=== PATIENT | female | born 1995 | race African-American/Black ===

== ENCOUNTER 2021-05-16 19:20 | Emergency (ER) | payer OTHER, SELFPAY ==
[2021-05-16 19:28] VITALS: BP 118/68; PULSE 84; RESP 14; TEMP 36.6; O2SAT 99
[2021-05-16] MEDS: ONDANSETRON 4 MG ODT SL (19:37)
[2021-05-16 21:30] VITALS: BP 123/57; PULSE 68; RESP 15; O2SAT 99
[2021-05-16 21:54] LABS: RBC Urine None Seen (0-5/HPF); Squamous Epithelial Cell Urine >30 /HPF (0-5/HPF); WBC Urine 1-5/HPF (0-5/HPF)
[2021-05-16 21:55] LABS: Bacteria Urine Many (>30); Culture Indicated Urine Cult Not Indicated; Mucus Urine 2+ (Negative)
[2021-05-16] MEDS: SODIUM CHLORIDE 0.9% 1,000 ML 1000 ML IV (22:03)
[2021-05-16 22:21] LABS: Alanine Aminotransferase 23 IU/L (<35); Albumin 4.6 g/dL (3.5-5.0); Albumin Globulin Ratio 1.2 (1.0-2.8); Alkaline Phosphatase 69 U/L (38-126); Aspartate Aminotransferase 28 IU/L (14-36); BUN Creatinine Ratio 18.9 (6-22); Bilirubin Total 0.7 mg/dL (0.2-1.3); Blood Urea Nitrogen 10 mg/dL (7-17); Calcium 9.7 mg/dL (8.4-10.2); Carbon Dioxide 23 mmol/L (22-32); Chloride 104 mmol/L (98-107); Estimated Glomerular Filt Rate > 60.0 mL/min (>60); Globulin 3.7 g/dL (1.7-4.1); Glucose 89 mg/dL (70-100); HEMOLYSIS 19 (0-50); Potassium 4.1 mmol/L (3.4-5.1); Sodium 136 mmol/L (137-145); Total Protein 8.3 g/dL (6.3-8.2)
[2021-05-16 22:24] LABS: Add Manual Diff / Slide Review NO; Basophils Absolute Auto 100 /uL (0-100); Basophils Percent Auto 0.7 % (0-2); Eosinophils Absolute Auto 0 /uL (0-450); Eosinophils Percent Auto 0.1 % (2-4); Hematocrit 33.3 % (36-46); Hemoglobin 11.2 g/dL (12.0-16.0); Lymphocytes Absolute Auto 3300 /uL (1100-4500); Lymphocytes Percent Auto 28.2 % (25-40); Mean Corpuscular HGB Conc 33.7 % (30-36); Mean Corpuscular Hemoglobin 27.3 PG (26-34); Mean Corpuscular Volume 81.1 fL (80-100); Monocytes Absolute Auto 800 /uL (0-900); Neutrophils Absolute Auto 7600 /uL (1500-7000); Platelet Count 385 X10^3/uL (150-400); Red Blood Cell Count 4.11 X10^6/uL (4.0-5.2); Red Cell Distribution Width 13.9 % (11.6-14.8); White Blood Cell Count 11.9 X10^3/uL (4.5-11.0)
--- NOTE | 2021-05-16 23:21 | ED_ITS ---
HPI - Nausea/Vomiting/Diarrhea General Chief complaint: Nausea/Vomiting/Diarrhea Stated complaint: not keeping food down Time Seen by Provider: 05/16/21 23:19 Source: patient Mode of arrival: Ambulatory History of Present Illness HPI Narrative: Patient is a 25-year-old female currently 6 weeks presenting today with nausea and vomiting. She says she has been nauseous and throwing up the past few days. She was seen and evaluated at [facility] on 05/13/2021 that time she had an ultrasound which confirmed IUP 6 weeks and 2 days along with blood work IV fluids and medication. She thought she was signing discharge pap erwork a some a told her she was discharged however it was Against Medical Advice paperwork. She has an Ob she appointment with her PCP in 2 days. She has Zofran at but only 1 tablet and took it earlier without any relief. She has no abdominal pain no vaginal bleeding. She is unable to keep anything down. She has tried all various types of marci she is on B6 Related Data Previous Rx's Medication Instructions Recorded ondansetron 4 mg disintegrating 4 mg PO Q8H PRN #10 tab 05/16/21 tablet Allergies Allergy/AdvReac Type Severity Reaction Status Date / Time No Known Drug Allergies Allergy Verified 05/16/21 19:32 Review of Systems Review of Systems Narrative: GENERAL: Denies chills, fatigue, malaise, fever, sweats, travel HEENT: Denies sinus pain, ear pain, sore throat, difficulty swallowing, neck pain RESPIRATORY: Denies dyspnea, cough, wheezing, hemoptysis, sputum. CARDIOVASCULAR: Denies chest pain, palpitations, orthopnea, edema GASTROINTESTINAL: See HPI : Denies dysuria, frequency, incontinence, hematuria, urinary retention, flank pain. MUSCULOSKELETAL: Denies weakness, joint pain, or bony pain SKIN: No rash, no erythema, no pruritus NEUROLOGIC: Denies weakness, dizziness, headache, numbness, change in speech, confusion PSYCHIATRIC: No concerning psychosocial issues. 12 point review of systems is negative except for those stated above and HPI Patient History Social History Smoking Status: Never smoker Smoking Status: Never smoker alcohol intake frequency: 0-2 drinks per day Substance Use Type: does not use Exam Initial Vital Signs Initial Vital Signs: Vital Signs Temperature 97.8 F 01/29/22 19:28 Pulse Rate 84 05/16/21 19:28 Respiratory Rate 14 05/16/21 19:28 Blood Pressure 118/68 05/16/21 19:28 Pulse Oximetry 99 05/16/21 19:28 GENERAL: Alert well-appearing 25-year-old femaleand in no acute distress. HEENT: Head atraumatic,EOMI, pupils reactive, face symmetric, moist mucous me mbranes CARDIOVASCULAR: Regular rate and rhythm without murmurs, rubs or gallops. RESPIRATORY: Breath sounds equal bilaterally, no wheezes rales or rhonchi. ABDOMEN: Soft, nontender. Normoactive bowel sounds all 4 quadrants. No guarding or rebound. : No CVA tenderness EXTREMITIES: Normal range of motion, no clubbing or edema. Neurovascularly intact NEUROLOGICAL: Alert and oriented x4.Normal gait and speech. SKIN: Warm, dry, no laceration, no petechiae, no rashes or lesions. Course Orders Ordered: ED Orders 05/16/21 21:40 Urine Microscopic Stat 05/16/21 22:05 CBC Auto Diff [Complete Blood Count AUTO DIFF] Stat CMP [Comprehensive Metabolic Panel] Stat Discontinued Medications Sodium Chloride (Normal Saline 0.9%) 1,000 mls @ 1,000 mls/hr IV BOLUS ONE Stop: 05/16/21 22:46 Last Infusion: 05/17/21 00:01 Dose: 0 mls/hr Documented by: Admin: 05/16/21 22:03 Dose: 1,000 mls/hr Documented by: ALXEUS Ondansetron HCl (Ondansetron 4 Mg Odt) 4 mg SL NOW ONE Stop: 05/16/21 19:35 Last Admin: 05/16/21 19:37 Dose: 4 mg Documented by: MICHELLE Vital Signs Vital signs: Vital Signs - 8 hr 05/16/21 19:28 05/16/21 21:30 05/17/21 00:02 Temperature 97.8 F Pulse Rate 84 68 66 Respiratory Rate 14 15 14 Blood Pressure 118/68 123/57 L 142/68 H Pulse Oximetry 99 99 98 MDM - Nausea/Vomiting/Diarrhea Lab Data Result diagrams: 05/16/21 22:05 05/16/21 22:05 Labs: Lab Results 05/16/21 05/16/21 05/16/21 Range/Units 21:40 22:05 22:05 WBC 11.9 H (4.5-11.0) X10^3/uL RBC 4.11 (4.0-5.2) X10^6/uL Hgb 11.2 L (12.0-16.0) g/dL Hct 33.3 L (36-46) % MCV 81.1 (80-100) fL MCH 27.3 (26-34) PG MCHC 33.7 (30-36) % RDW 13.9 (11.6-14.8) % Plt Count 385 (150-400) X10^3/uL Neut % (Auto) 64.0 (50-75) % Lymph % (Auto) 28.2 (25-40) % [place] % (Auto) 7.0 (3-14) % Eos % (Auto) 0.1 L (2-4) % Baso % (Auto) 0.7 (0-2) % Neut # (Auto) 7600 H (0047-3570) /uL Lymph # (Auto) 3300 (2744-9704) /uL [place] # (Auto) 800 (0-900) /uL Eos # (Auto) 0 (0-450) /uL Baso # (Auto) 100 (0-100) /uL Sodium 136 L (137-145) mmol/L Potassium 4.1 (3.4-5.1) mmol/L Chloride 104 (98-107) mmol/L Carbon Dioxide 23 (22-32) mmol/L BUN 10 (7-17) mg/dL Creatinine 0.53 (0.52-1.04) mg/dL Estimated GFR > 60.0 (>60) mL/min BUN/Creatinine Ratio 18.9 (6-22) Glucose 89 (70-100) mg/dL Calcium 9.7 (8.4-10.2) mg/dL Total Bilirubin 0.7 (0.2-1.3) mg/dL AST 28 (14-36) IU/L ALT 23 (<35) IU/L Alkaline Phosphatase 69 (38-126) U/L Total Protein 8.3 H (6.3-8.2) g/dL Albumin 4.6 (3.5-5.0) g/dL Globulin 3.7 (1.7-4.1) g/dL Albumin/Globulin Ratio 1.2 (1.0-2.8) Urine RBC None seen (0-5/HPF) Urine WBC 1-5/hpf (0-5/HPF) Ur Squamous Epith Cells >30 /hpf H (0-5/HPF) Urine Bacteria Many (>30) H (None) Urine Mucus 2+ H (Negative) Ur Culture Indicated? Cult not indicated Urine Dip Bedside Urine Glucose Negative Bedside Urine Bilirubin - Negative Bedside Urine Ketone +++ 80 Urine Specific [place] 1.030 Bedside Urine Occult Blood - Negative Bedside Urine pH 6.0 Bedside Urine Protein + 30 Bedside Urine Urobilinogen - Negative Bedside Urine Nitrite - Negative Bedside Urine Leukocytes - Negative Esterase MDM Narrative Medical decision making narrative: At time of evaluation patient already given medication and fluids she overall appears well the much better. She is hungry no longer vomiting. There is no sign of infection. she has tried multiple homeremedies and things at home to help nausea. She has an appointment with her PCP in 2 days. No need to repeat ultrasound from 3 days ago she is not having significant abdominal pain or vag inal bleeding. Discharge Plan Departure Patient Disposition: Home Clinical Impression: Vomiting during Instructions: Hyperemesis Gravidarum Activity Restrictions/Additional Instructions: *You have been diagnosed with vomiting with *What to do: At this time increase fluids as tolerated. Recommend water, Gatorade, mentor peppermint those may help some nausea. Jell-O applesauce and anything else. *Continue to take medications as directed Continue B6 daily Zofran 4 mg every 8 hours if needed for severe nausea or vomiting. *Follow up with your primary care provider in 2-3 days or call [phone] *Return to ER if you should have persistent vomiting, increased abdominal pain, vaginal bleeding or any new, worsening or concerning symptoms Prescriptions: New ondansetron 4 mg tablet,disintegrating 4 mg PO Q8H PRN (Reason: nausea and vomiting) Qty: 10 0RF Referrals: [employer] [facility] [Provider Group]
[2021-05-17 00:02] VITALS: BP 142/68; PULSE 66; RESP 14; O2SAT 98
== END 2021-05-17 00:07 | disposition home or self-care (01) ==
PROVIDERS: Emergency Provider Emergency Medicine
DX: O21.9 Vomiting of pregnancy, unspecified (principal); Z3A.01 Less than 8 weeks gestation of pregnancy
CPT/HCPCS: 36415; 80053; 81003; 81015; 85025; 96360; 96361; 99284

== ENCOUNTER → 2021-06-11 14:17 | Outpatient (CLI) | payer OTHER, SELFPAY ==
--- NOTE | 2021-06-11 14:17 | DI.US.S_ITS ---
PROCEDURE: US OB <= 14 WEEKS FETUS INDICATIONS: VIABILITY AND DATES OUTSIDE/PRIOR DATING DATA: Last menstrual period (LMP): 03/24/2021. LMP-based estimated date of delivery (MARY): 12/29/2021. First dating scan (date and location): 06/11/2021. Estimated date of delivery (MARY) from first dating scan: 01/01/2022. TECHNIQUE: Real-time scanning was performed of the fetus and maternal pelvic organs, with image documentation. Endovaginal scanning was also performed to better visualize the fetus and maternal ovaries. COMPARISON: None. FINDINGS: Embryo: Single live intrauterine is identified with crown-rump length measuring 4 cm corresponding to 10 weeks 6 days. Heart rate: 168 beats per minute. Maternal organs: Ovaries demonstrate a likely left corpus luteal cyst.. IMPRESSION: Single live intrauterine with ultrasound gestational age of 10 weeks 6 days. Recommend followup imaging at 20-22 weeks for dates and anatomy. We strive to produce accurate, complete, and clear reports of imaging services. To assist us in improving patient care, this report was composed using standard report templates and voice recognition software. Therefore, it may contain abnormal punctuation, insertions and/or omissions. Occasional wrong-word or sound-alike substitutions may occur. Though we review the report and make efforts to correct it, we do recommend that the report be read carefully in proper context to recognize any text inaccuracies. Dictated by: Julia Johnson M.D. on 06/11/2021 at 16:33 Approved by: Julia Johnson M.D. on 06/11/2021 at 16:34
[2021-06-11 15:45] LABS: Add Manual Diff / Slide Review NO; Basophils Absolute Auto 0 /uL (0-100); Basophils Percent Auto 0.3 % (0-2); Eosinophils Absolute Auto 100 /uL (0-450); Eosinophils Percent Auto 0.5 % (2-4); Hematocrit 32.1 % (36-46); Hemoglobin 10.8 g/dL (12.0-16.0); Lymphocytes Absolute Auto 3000 /uL (1100-4500); Lymphocytes Percent Auto 26.1 % (25-40); Mean Corpuscular HGB Conc 33.5 % (30-36); Mean Corpuscular Hemoglobin 27.5 PG (26-34); Monocytes Absolute Auto 600 /uL (0-900); Monocytes Percent Auto 5.1 % (3-14); Neutrophils Absolute Auto 7700 /uL (1500-7000); Platelet Count 345 X10^3/uL (150-400); Red Blood Cell Count 3.92 X10^6/uL (4.0-5.2); Red Cell Distribution Width 13.9 % (11.6-14.8); White Blood Cell Count 11.3 X10^3/uL (4.5-11.0)
[2021-06-11 16:49] LABS: Hepatitis B Surface Antigen NEGATIVE s/c (NEGATIVE); Rubella Antibody IgG 42.3 IU/mL (>15)
[2021-06-11 16:59] LABS: HIV 1 & 2 Ab/Ag 4th Gen Combo NEGATIVE (NEGATIVE); Hep C Virus Ab w/Reflex Quant NEGATIVE s/c (NEGATIVE)
[2021-06-12 04:36] LABS: RPR Screen Non Reactive (Non Reactive); Varicella IgG Antibody 421 index (Immune >165)
== END ==
PROVIDERS: Referring Provider Obstetrics & Gynecology; Visit Provider Obstetrics & Gynecology
DX: Z34.81 Encounter for supervision of other normal pregnancy, first trimester (principal); Z3A.10 10 weeks gestation of pregnancy
CPT/HCPCS: 36415; 76801; 76817; 80055; 86787; 86803; 86850; 86900; 86901; 87389

== ENCOUNTER → 2021-06-16 12:24 | Outpatient (CLI) | payer OTHER, SELFPAY ==
[2021-06-16 17:07] LABS: Urine N gonorrhoeae NOT DETECTED
[2021-06-16 18:17] LABS: Urine Chlamydia NOT DETECTED
== END ==
PROVIDERS: Visit Provider Obstetrics & Gynecology
DX: Z11.3 Encounter for screening for infections with a predominantly sexual mode of transmission (principal)
CPT/HCPCS: 87491; 87591

== ENCOUNTER 2021-06-26 15:11 | Emergency (ER) | payer OTHER, SELFPAY ==
[2021-06-26 15:51] VITALS: BP 112/57; PULSE 83; RESP 18; TEMP 36.6; O2SAT 100
--- NOTE | 2021-06-26 16:11 | DI.US.S_ITS ---
PROCEDURE: US OB <= 14 WEEKS FETUS INDICATIONS: bleeding OUTSIDE/PRIOR DATING DATA: Last menstrual period (LMP): March 27, 2021. LMP-based estimated date of delivery (MARY): January 01, 2022. First dating scan (date): June 11, 2021. Estimated date of delivery (MARY) from first dating scan: December 31, 2021. TECHNIQUE: Real-time scanning was performed of the fetus and maternal pelvic organs, with image documentation. Endovaginal scanning was also performed to better visualize the fetus and maternal ovaries. COMPARISON: [facility], , OB <= 14 WEEKS FETUS, 06/11/2021, 14:30. FINDINGS: Embryo: [place]-rump length: 6.9 cm, compatible with a 13 week, 1 day gestation Heart rate: 162 beats per minute Maternal organs: Ovaries appear within normal limits. IMPRESSION: Early live single intrauterine gestation. We strive to produce accurate, complete, and clear reports of imaging services. To assist us in improving patient care, this report was composed using standard report templates and voice recognition software. Therefore, it may contain abnormal punctuation, insertions and/or omissions. Occasional wrong-word or sound-alike substitutions may occur. Though we review the report and make efforts to correct it, we do recommend that the report be read carefully in proper context to recognize any text inaccuracies. Dictated by: Tavo Stephens M.D. on 06/26/2021 at 16:58 Approved by: Tavo Stephens M.D. on 06/26/2021 at 17:01
[2021-06-26 16:33] LABS: Add Manual Diff / Slide Review NO; Basophils Absolute Auto 100 /uL (0-100); Basophils Percent Auto 0.6 % (0-2); Eosinophils Absolute Auto 100 /uL (0-450); Eosinophils Percent Auto 0.8 % (2-4); Hematocrit 33.1 % (36-46); Hemoglobin 11.1 g/dL (12.0-16.0); Lymphocytes Absolute Auto 4000 /uL (1100-4500); Lymphocytes Percent Auto 28.5 % (25-40); Mean Corpuscular HGB Conc 33.4 % (30-36); Mean Corpuscular Hemoglobin 28.1 PG (26-34); Mean Corpuscular Volume 84.2 fL (80-100); Monocytes Absolute Auto 800 /uL (0-900); Monocytes Percent Auto 5.3 % (3-14); Neutrophils Absolute Auto 9200 /uL (1500-7000); Neutrophils Percent Auto 64.8 % (50-75); Platelet Count 279 X10^3/uL (150-400); Red Blood Cell Count 3.93 X10^6/uL (4.0-5.2); White Blood Cell Count 14.2 X10^3/uL (4.5-11.0)
[2021-06-26 16:39] LABS: Alanine Aminotransferase 13 IU/L (<35); Albumin 4.5 g/dL (3.5-5.0); Albumin Globulin Ratio 1.1 (1.0-2.8); Alkaline Phosphatase 105 U/L (38-126); Aspartate Aminotransferase 24 IU/L (14-36); Bilirubin Total 0.3 mg/dL (0.2-1.3); Blood Urea Nitrogen 11 mg/dL (7-17); Calcium 9.4 mg/dL (8.4-10.2); Carbon Dioxide 20 mmol/L (22-32); Chloride 105 mmol/L (98-107); Estimated Glomerular Filt Rate > 60.0 mL/min (>60); Glucose 92 mg/dL (70-100); Sodium 133 mmol/L (137-145); Total Protein 8.5 g/dL (6.3-8.2)
[2021-06-26 17:19] LABS: HCG Quantitative /Beta subunit 65858 mIU/mL; HEMOLYSIS 18 (0-50)
--- NOTE | 2021-06-26 18:15 | ED_ITS ---
HPI - General Chief complaint: OB/Uterine Contractions Stated complaint: Bleeding and Cramping/13 Wks Preg Time Seen by Provider: 06/26/21 16:11 Source: patient Mode of arrival: Ambulatory Limitations: no limitations History of Present Illness HPI Narrative: 25-year-old female at 13 weeks presents with chief complaint of some cramping and bleeding that started a few days ago but is largely resolved now. She denies any obvious provocation or palliation of her discomfort. She denies any ongoing bleeding or leakage of fluid. She is not dizzy nor weak or lightheaded. She has had no fever or chills. She denies dysuria, frequency or urgency. Related Data Home Medications Medication Instructions Recorded Confirmed prenat.vits,talita,txi-[id number] 1 tab PO DAILY 06/04/21 06/04/21 pyridoxine (vitamin B6) 100 mg 100 mg PO QID 06/04/21 06/04/21 tablet Previous Rx's Medication Instructions Recorded ondansetron 4 mg disintegrating 4 mg PO Q8H PRN #10 tab 05/16/21 tablet Allergies Allergy/AdvReac Type Severity Reaction Status Date / Time No Known Drug Allergies Allergy Verified 05/16/21 19:32 Review of Systems Review of Systems Narrative: GENERAL: Denies chills, fatigue, malaise, fever, sweats. HEENT: Denies sinus pain, ear pain, sore throat, difficulty swallowing, dizziness. RESPIRATORY: Denies dyspnea, cough, wheezing, hemoptysis, sputum. CARDIOVASCULAR: Denies chest pain, palpitations, orthopnea, edema, GASTROINTESTINAL: Denies nausea, vomiting, abdominal pain, diarrhea, constipation, melena. : See HPI MUSCULOSKELETAL: denies weakness, joint pain, or bony pain SKIN: Denies rash, skin lesions, or other NEUROLOGIC: Denies weakness, headache, numbness, change in speech, confusion, seizures, incoordination. PSYCHIATRIC: No concerning psychosocial issues. 12 point review of systems is negative except for those stated above Exam Narrative Exam Narrative: GENERAL: 25 [] year old patient appears stated age. Well-developed patient, in mild distress. HEAD: Atraumatic. Normocephalic. EYES: Pupils equal round and reactive. Extraocular motions intact. No scleral icterus. No injection or drainage. ENT: Nose without bleeding, purulent drainage. Throat without erythema, tonsillar hypertrophy or exudate. Airway patent. NECK: Trachea midline. Non tender CARDIOVASCULAR: Regular rate and rhythm without murmurs, gallops, or rubs. RESPIRATORY: Clear to auscultation. Breath sounds equal bilaterally. No wheezes, rales, or rhonchi. GASTROINTESTINAL: Abdomen soft, non-tender, nondistended. EXTREMITIES: No edema or joint tenderness. BACK: Nontender without deformity or crepitance. No flank tenderness. NEURO: AOx3. SKIN: No rash or erythema of visible areas Initial Vital Signs Initial Vital Signs: Vital Signs Temperature 97.9 F 06/26/21 15:51 Pulse Rate 83 06/26/21 15:51 Respiratory Rate 18 06/26/21 15:51 Blood Pressure 112/57 L 06/26/21 15:51 Pulse Oximetry 100 06/26/21 15:51 Course Orders Ordered: ED Orders 06/26/21 16:10 ABO RH Type Stat Complete Blood Count AUTO DIFF Stat Comprehensive Metabolic Panel Stat HCG Quantitative /Beta subunit Stat 06/26/21 16:11 US OB <= 14 weeks fetus Stat Vital Signs Vital signs: Vital Signs - 8 hr 06/26/21 15:51 Temperature 97.9 F Pulse Rate 83 Respiratory Rate 18 Blood Pressure 112/57 L Pulse Oximetry 100 MDM - OB/Uterine Contractions Lab Data Result diagrams: 06/26/21 16:10 06/26/21 16:10 Labs: Lab Results 06/26/21 06/26/21 06/26/21 Range/Units 16:10 16:10 16:10 WBC 14.2 H (4.5-11.0) X10^3/uL RBC 3.93 L (4.0-5.2) X10^6/uL Hgb 11.1 L (12.0-16.0) g/dL Hct 33.1 L (36-46) % MCV 84.2 (80-100) fL MCH 28.1 (26-34) PG MCHC 33.4 (30-36) % RDW 14.0 (11.6-14.8) % Plt Count 279 (150-400) X10^3/uL Neut % (Auto) 64.8 (50-75) % Lymph % (Auto) 28.5 (25-40) % [place] % (Auto) 5.3 (3-14) % Eos % (Auto) 0.8 L (2-4) % Baso % (Auto) 0.6 (0-2) % Neut # (Auto) 9200 H (8942-3320) /uL Lymph # (Auto) 4000 (2164-2351) /uL [place] # (Auto) 800 (0-900) /uL Eos # (Auto) 100 (0-450) /uL Baso # (Auto) 100 (0-100) /uL Sodium 133 L (137-145) mmol/L Potassium 4.0 (3.4-5.1) mmol/L Chloride 105 (98-107) mmol/L Carbon Dioxide 20 L (22-32) mmol/L BUN 11 (7-17) mg/dL Creatinine 0.44 L (0.52-1.04) mg/dL Estimated GFR > 60.0 (>60) mL/min BUN/Creatinine Ratio 25.0 H (6-22) Glucose 92 (70-100) mg/dL Calcium 9.4 (8.4-10.2) mg/dL Total Bilirubin 0.3 (0.2-1.3) mg/dL AST 24 (14-36) IU/L ALT 13 (<35) IU/L Alkaline Phosphatase 105 (38-126) U/L Total Protein 8.5 H (6.3-8.2) g/dL Albumin 4.5 (3.5-5.0) g/dL Globulin 4.0 (1.7-4.1) g/dL Albumin/Globulin Ratio 1.1 (1.0-2.8) HCG, Quant 08986 mIU/mL Blood Type B Positive Urine Dip Bedside Urine Glucose Negative Bedside Urine Bilirubin - Negative Bedside Urine Ketone - Negative Urine Specific [place] 1.030 Bedside Urine Occult Blood - Negative Bedside Urine pH 6.0 Bedside Urine Protein - Negative Bedside Urine Urobilinogen - Negative Bedside Urine Nitrite - Negative Bedside Urine Leukocytes - Negative Esterase Imaging Data US - OB: Radiologist's Impression: Chart Viewer Diagnostics Subcategory All Activity ??:?? All Time ??:?? All Subcategories Filter Laboratory Imaging Microbiology Pathology Blood Bank Tests Cardiovascular Other Specialty DATE TYPE STATUS REF RANGE/AUTHOR Hx 06/26/21 16:11 Ultrasound Signed Tavo Stephens 06/11/21 14:17 Ultrasound Signed Julia Johnson Resseya S ED 25, F?1995 MRN#? [id number] [facility]P ER,?Main ED??? 152.4cm 69.853kg BMI: 30.1kg/m? OB/Uterine Contractions Acc#? [id number] Resus Status Not Ordered No Hx Avail Special Indicators No Data to Display Home Meds Not Confirmed Prescription Monitoring Program MEDICATIONS (INSTRUCTIONS) LAST TAKEN Active ??ondansetron ??4 [id number] tab ??prenat.vits,talita,wll-lljr-hdfuw ??1 tabPODAILY ??pyridoxine (vitamin B6) 100 mg tablet ??100 mgPOQID Allergies No Known Drug Allergies Problems ? ONSET First trimester bleeding Anemia affecting , antepartum Family history of congenital heart defect Encounter for supervision of other normal , unspecified trimester Vital Signs 06/26/21 18:48 BP 104/78? Pulse 70? Resp 14? O2 Sat 99? Delivery Room Air? Diagnostics Reports Jenn Jimenez??25??F??1995 ? Allergy/Adv: No Known Drug Allergies (More??) Close Ultrasound (Signed) AngeloTavo - 06/26/21 Ultrasound (Signed) Julia Johnson - 06/11/21 [place] [id number] Ultrasound Report Signed Patient: Jenn Jimenez MR#: [id number] : 1995 Acct:[id number] Age/Sex: 25 / F Date of Service: 06/26/21 Loc: ED Accession Number: [id number] ?? Procedure: US OB <= 14 weeks fetus Ordering Provider: Lyly Sheffield D.O. PROCEDURE:? US OB <= 14 WEEKS FETUS ? INDICATIONS:? bleeding ? OUTSIDE/PRIOR DATING DATA:? Last menstrual period (LMP):? March 27, 2021.? LMP-based estimated date of delivery (MARY):? January 01, 2022.? First dating scan (date):? June 11, 2021.? Estimated date of delivery (MARY) from first dating scan:? December 31, 2021. ? TECHNIQUE:? Real-time scanning was performed of the fetus and maternal pelvic organs, with image documentation.? Endovaginal scanning was also performed to better visualize the fetus and maternal ovaries.? ? COMPARISON:? [facility], , OB <= 14 WEEKS FETUS, 06/11/2021, 14:30. ? FINDINGS:? ? Embryo:? [place]-rump length:? 6.9 cm, compatible with a 13 week, 1 day gestation Heart rate:? 162 beats per minute ? Maternal organs:? Ovaries appear within normal limits. ? ? ? IMPRESSION:? Early live single intrauterine gestation. ? We strive to produce accurate, complete, and clear reports of imaging services. To assist us in improving patient care, this report was composed using standard report templates and voice recognition software. Therefore, it may contain abnormal punctuation, insertions and/or omissions. Occasional wrong-word or sound-alike substitutions may occur. Though we review the report and make efforts to correct it, we do recommend that the report be read carefully in proper context to recognize any text inaccuracies. ? Dictated by: Tavo Stephens M.D. on 06/26/2021 at 16:58 ? ? Approved by: Tavo Stephens M.D. on 06/26/2021 at 17:01 ? Discharge Plan Departure Patient Disposition: Home Clinical Impression: First trimester bleeding Instructions: DI for -- Discomforts and Remedies Activity Restrictions/Additional Instructions: *You have been diagnosed with [1st trimester bleeding] as we discussed, your history and physical exam are very reassuring. There is no evidence of significant abnormality on the ultrasound such as ectopic or obvious abnormality *What to do: *Please continue to take your regular medications as directed. [ ] New medication prescriptions sent to your pharmacy: [ ] [ ] New medication written as a paper prescription [ ] No new medications given *Please follow up with your primary OB provider in 2-3 days, call for an appointment. Let them know you were seen in the Emergency Department and that we ask that you be seen in follow up. We will electronically transmit a record of today's note *Return to Emergency Department if you should have any new, worsening or concerning symptoms, such as [fever greater than 101 F, shaking chills, worsening pain, persistent vomiting, bleeding through more than 1 pad per hour other bothersome symptoms] Prescriptions: No Action prenat.vits,talita,ibr-rpbk-aidqe Tablet 1 tab PO DAILY 0RF pyridoxine (vitamin B6) 100 mg tablet 100 mg PO QID 0RF ondansetron 4 mg tablet,disintegrating 4 mg PO Q8H PRN (Reason: nausea and vomiting) Qty: 10 0RF Referrals: Miscellaneous,Doctor, [Primary Care Provider] - Candido zAevedo MD [Physician] -
[2021-06-26 18:48] VITALS: BP 104/78; PULSE 70; RESP 14; O2SAT 99
== END 2021-06-26 18:50 | disposition home or self-care (01) ==
PROVIDERS: Emergency Medicine; Emergency Provider Emergency Medicine; Referring Provider Obstetrics & Gynecology
DX: O20.9 Hemorrhage in early pregnancy, unspecified (principal); Z3A.13 13 weeks gestation of pregnancy
CPT/HCPCS: 36415; 76801; 76817; 80053; 81003; 84702; 85025; 86900; 86901; 99284

== ENCOUNTER → 2021-07-15 09:13 | Outpatient (CLI) | payer OTHER, SELFPAY ==
[2021-07-15 13:08] LABS: Appearance Urine UA SL CLOUDY; Bilirubin Urine UA NEGATIVE (NEGATIVE); Color Urine UA YELLOW; Glucose Urine UA TRACE g/dL (Negative); Ketones Urine UA NEGATIVE (NEGATIVE); Leukocyte Esterase Urine UA NEGATIVE (NEGATIVE); Nitrite Urine UA NEGATIVE (Negative); Occult Blood Urine UA NEGATIVE (Negative); Protein Urine UA NEGATIVE (Negative); Urobilinogen Urine UA 0.2 E.U./dL (0.2)
== END ==
PROVIDERS: Visit Provider Obstetrics & Gynecology
DX: Z34.80 Encounter for supervision of other normal pregnancy, unspecified trimester (principal)
CPT/HCPCS: 81003; 87086

== ENCOUNTER → 2021-07-15 09:43 | Outpatient (CLI) | payer OTHER, SELFPAY ==
[2021-07-23 20:29] LABS: AFP, Serum 21.1 ng/mL (.); Inhibin A, Dimeric 196.75 pg/mL (.); Maternal Ethnicity Black (.); Maternal Weight 156 lbs (.); Number of Fetuses No (.); OSBR Risk 1 IN 10000 (.); Results Report (.); Test Results *Screen Negative* (.); hCG, MoM 1.02 (.); hCG, Serum 40667 mIU/mL (.)
== END ==
PROVIDERS: Referring Provider Obstetrics & Gynecology; Visit Provider Obstetrics & Gynecology
DX: Z34.82 Encounter for supervision of other normal pregnancy, second trimester (principal); Z3A.16 16 weeks gestation of pregnancy
CPT/HCPCS: 36415; 81003; 82105; 82677; 84702; 86336; 87086

== ENCOUNTER 2021-10-13 09:53 | Outpatient (CLI) | payer OTHER, SELFPAY ==
--- NOTE | 2021-10-13 10:47 | PM.OBTRLD ---
Visit Information Visit Information Date of evaluation: 10/13/21 Primary OB Provider: Candido Azevedo On-call OB Provider: Mireya Oneal Reason for Evaluation: Yes non-stress test Comments/Additional reasons for admission: scheduled NST for IUGR, EFW 7% PFSH Medical History (Updated 09/24/21 @ 12:40 by Candido Azevedo MD) Depression Hyperemesis gravidarum Surgical History (Updated 06/04/21 @ 11:44 by Trudi Coleman, RN) History of wisdom tooth extraction Family History (Updated 06/04/21 @ 11:46 by Trudi Coleman, RN) Sister Hx of congenital cardiac septal defect Brother Hx of congenital cardiac septal defect Social History marital status: number of children: 1 household members: spouse and children lives independently: Yes housing: house pets and animals: Yes (Dog) education level: college occupational status: unemployed seatbelt use: always water heater temp set < 120 deg: Yes (will check) working smoke detector in home: Yes fire extinguisher in home: Yes carbon monox detector in home: Yes firearms in home: Yes firearms unloaded and locked: Yes do you feel safe at home: Yes Smoking Status: Never smoker second hand exposure: No alcohol intake: former substance use type: does not use during the past year weight has: remained stable well-balanced diet: daily or most days daily servings fruits/ve-4 caffeine: Yes (200mg) Type(s) of exercise: none Evaluation Evaluation Baseline heart rate: 140 Variability: Average (6-10) monitor accelerations: Present (10x10 beat accelerations) Monitor Decelerations: Absent Category of Tracing: Appropriate for gestational age Status: Category l Diagnosis, Plan/Disposition Plan/Disposition Plan: keep weekly office and NST appts OB Disposition: home
== END 2021-10-13 10:45 | disposition home or self-care (01) ==
LOC: LABOR 10:54 → OB 10-15 07:22
PROVIDERS: Referring Provider Obstetrics & Gynecology; Visit Provider Obstetrics & Gynecology
DX: O36.5930 Maternal care for other known or suspected poor fetal growth, third trimester, not applicable or unspecified (principal); Z3A.29 29 weeks gestation of pregnancy
CPT/HCPCS: 59025; G0378; G0379

== ENCOUNTER 2021-10-22 11:34 | Outpatient (CLI) | payer OTHER, SELFPAY | END 2021-10-22 12:40 | disposition home or self-care (01) | LOC: LABOR 12:19 → OB 10-23 06:49 | PROVIDERS: Referring Provider Obstetrics & Gynecology; Visit Provider Obstetrics & Gynecology | DX: O36.5930 Maternal care for other known or suspected poor fetal growth, third trimester, not applicable or unspecified (principal); Z3A.30 30 weeks gestation of pregnancy | CPT/HCPCS: 59025; G0378; G0379 ==

== ENCOUNTER 2021-10-27 15:57 | Outpatient (CLI) | payer OTHER, SELFPAY | END 2021-10-27 17:05 | disposition home or self-care (01) | LOC: LABOR 16:23 → OB 11-25 15:14 | PROVIDERS: Referring Provider Obstetrics & Gynecology; Visit Provider Obstetrics & Gynecology | DX: O36.5930 Maternal care for other known or suspected poor fetal growth, third trimester, not applicable or unspecified (principal); Z3A.31 31 weeks gestation of pregnancy | CPT/HCPCS: 59025; G0378; G0379 ==

== ENCOUNTER 2021-11-05 10:55 | Outpatient (CLI) | payer OTHER, SELFPAY ==
--- NOTE | 2021-11-05 11:57 | P.TNLD_ITS ---
Visit Information Visit Information Date of evaluation: 11/05/21 Primary OB Provider: Candido Azevedo Reason for Evaluation: Yes non-stress test Comments/Additional reasons for admission: Weekly NST for intrauterine growth restriction, currently 13th %'tile w/ NL ROMAN on last scan. [facility] Medical History Depression Hyperemesis gravidarum Surgical History History of wisdom tooth extraction Family History Sister Hx of congenital cardiac septal defect Brother Hx of congenital cardiac septal defect Social History marital status: number of children: 1 household members: spouse and children lives independently: Yes housing: house pets and animals: Yes (Dog) education level: college occupational status: unemployed seatbelt use: always water heater temp set < 120 deg: Yes (will check) working smoke detector in home: Yes fire extinguisher in home: Yes carbon monox detector in home: Yes firearms in home: Yes firearms unloaded and locked: Yes do you feel safe at home: Yes Smoking Status: Never smoker second hand exposure: No alcohol intake: former substance use type: does not use during the past year weight has: remained stable well-balanced diet: daily or most days daily servings fruits/ve-4 caffeine: Yes (200mg) Type(s) of exercise: none Evaluation Evaluation Baseline heart rate: 140 Variability: Moderate (11-25) monitor accelerations: Present Monitor Decelerations: Absent Category of Tracing: Reactive Status: Category l Diagnosis, Plan/Disposition Plan/Disposition Plan: Continue antepartum care/surveillance OB Disposition: home
== END 2021-11-05 12:03 | disposition home or self-care (01) ==
LOC: LABOR 11:46 → OB 14:27
PROVIDERS: Referring Provider Obstetrics & Gynecology; Visit Provider Obstetrics & Gynecology
DX: O36.5930 Maternal care for other known or suspected poor fetal growth, third trimester, not applicable or unspecified (principal); Z3A.32 32 weeks gestation of pregnancy
CPT/HCPCS: 59025; G0378; G0379

== ENCOUNTER 2021-11-12 10:09 | Outpatient (CLI) | payer OTHER, SELFPAY ==
--- NOTE | 2021-11-12 11:00 | DI.US.S_ITS ---
PROCEDURE: US OB LIMITED INDICATIONS: ROMAN, doppler and BPP OUTSIDE/PRIOR DATING DATA: Last menstrual period (LMP): 03/24/2022 LMP-based estimated date of delivery (MARY): 12/29/2021 First dating scan (date and location): [facility] 06/11/2021 Estimated date of delivery (MARY) from first dating scan: 01/01/2022 TECHNIQUE: Real-time scanning was performed of the fetus for biophysical profile, with image documentation. Color and pulse Doppler interrogation was also performed of the umbilical artery near its insertion into the placenta. COMPARISON: 06/26/2021 FINDINGS: General: A single living intrauterine gestation is present. Presentation: Cephalic Placenta: Fundal/posterior placenta without previa Amniotic fluid index: 14.4 heart rate: 153 beats per minute Maternal cervical canal: 3.4 cm Biophysical profile: Tone: 2 Movement: 2 Respiration: 2 Largest pocket of fluid: 2 Umbilical artery Doppler 3.5-3.6 (95th percent) IMPRESSION: Living intrauterine gestation in cephalic presentation. Biometry was not performed on today's study. Normal biophysical profile. Normal ROMAN. Umbilical artery Doppler of 3.5-3.6, which is borderline abnormal for gestational age. 95th percent. Consider follow-up as clinically appropriate. We strive to produce accurate, complete, and clear reports of imaging services. To assist us in improving patient care, this report was composed using standard report templates and voice recognition software. Therefore, it may contain abnormal punctuation, insertions and/or omissions. Occasional wrong-word or sound-alike substitutions may occur. Though we review the report and make efforts to correct it, we do recommend that the report be read carefully in proper context to recognize any text inaccuracies. Dictated by: Gage Bowman M.D. on 11/12/2021 at 12:33 Approved by: Gage Bowman M.D. on 11/12/2021 at 12:40
--- NOTE | 2021-11-13 13:19 | PM.OBTRLD ---
Visit Information Visit Information Date of evaluation: 11/12/21 Primary OB Provider: Candido Azevedo Reason for Evaluation: Yes non-stress test [facility] Medical History Depression Hyperemesis gravidarum Surgical History History of wisdom tooth extraction Family History Sister Hx of congenital cardiac septal defect Brother Hx of congenital cardiac septal defect Social History marital status: number of children: 1 household members: spouse and children lives independently: Yes housing: house pets and animals: Yes (Dog) education level: college occupational status: unemployed seatbelt use: always water heater temp set < 120 deg: Yes (will check) working smoke detector in home: Yes fire extinguisher in home: Yes carbon monox detector in home: Yes firearms in home: Yes firearms unloaded and locked: Yes do you feel safe at home: Yes Smoking Status: Never smoker second hand exposure: No alcohol intake: former substance use type: does not use during the past year weight has: remained stable well-balanced diet: daily or most days daily servings fruits/ve-4 caffeine: Yes (200mg) Type(s) of exercise: none Evaluation Evaluation Baseline heart rate: 145 Variability: Moderate (11-25) monitor accelerations: Present Monitor Decelerations: Absent Category of Tracing: Reactive Status: Category l Diagnosis, Plan/Disposition Plan/Disposition Plan: Continue antepartum surveillance as planned. OB Disposition: home
== END 2021-11-12 12:14 | disposition home or self-care (01) ==
LOC: LABOR 12:03 → OB 11-16 09:05
PROVIDERS: Referring Provider Obstetrics & Gynecology; Visit Provider Obstetrics & Gynecology
DX: O36.5930 Maternal care for other known or suspected poor fetal growth, third trimester, not applicable or unspecified (principal); Z3A.33 33 weeks gestation of pregnancy
CPT/HCPCS: 59025; 76815; 76820; 93971; G0378; G0379

== ENCOUNTER 2021-11-16 16:37 | Outpatient (CLI) | payer OTHER, SELFPAY ==
--- NOTE | 2021-11-16 18:05 | P.TNLD_ITS ---
Visit Information Visit Information Date of evaluation: 11/16/21 Primary OB Provider: Candido Azevedo On-call OB Provider: Minnie Baires Reason for Evaluation: Yes non-stress test non-stress test reason: other (IUGR) [facility] Medical History (Updated 11/05/21 @ 10:58 by Candido Azevedo MD) Depression Hyperemesis gravidarum Surgical History (Updated 06/04/21 @ 11:44 by Trudi Coleman, RN) History of wisdom tooth extraction Family History (Updated 06/04/21 @ 11:46 by Trudi Coleman, RN) Sister Hx of congenital cardiac septal defect Brother Hx of congenital cardiac septal defect Social History marital status: number of children: 1 household members: spouse and children lives independently: Yes housing: house pets and animals: Yes (Dog) education level: college occupational status: unemployed seatbelt use: always water heater temp set < 120 deg: Yes (will check) working smoke detector in home: Yes fire extinguisher in home: Yes carbon monox detector in home: Yes firearms in home: Yes firearms unloaded and locked: Yes do you feel safe at home: Yes Smoking Status: Never smoker second hand exposure: No alcohol intake: former substance use type: does not use during the past year weight has: remained stable well-balanced diet: daily or most days daily servings fruits/ve-4 caffeine: Yes (200mg) Type(s) of exercise: none Evaluation Evaluation Baseline heart rate: 145 Variability: Moderate (11-25) monitor accelerations: Present Monitor Decelerations: Absent Category of Tracing: Reactive Diagnosis, Plan/Disposition Plan/Disposition Plan: ASSESSMENT: 34 WEEKS GESTATION INTRAUTERINE GROWTH RESTRICTION Reactive nonstress test Plan: Follow-up as scheduled with Dr. Azevedo kick counts reviewed OB Disposition: home
== END 2021-11-16 17:26 | disposition home or self-care (01) ==
LOC: LABOR 16:41 → OB 11-18 11:36
PROVIDERS: Referring Provider Obstetrics & Gynecology; Visit Provider Obstetrics & Gynecology
DX: O36.5930 Maternal care for other known or suspected poor fetal growth, third trimester, not applicable or unspecified (principal); Z3A.34 34 weeks gestation of pregnancy
CPT/HCPCS: 59025; G0378; G0379

== ENCOUNTER 2021-11-19 11:29 | Outpatient (CLI) | payer OTHER, SELFPAY ==
[2021-11-19 12:30] LABS: COVID19 -Nasal RAPID Negative (Negative)
== END 2021-11-19 12:26 | disposition home or self-care (01) ==
LOC: LABOR 11:59 → OB 11-23 12:54
PROVIDERS: Referring Provider Obstetrics & Gynecology; Visit Provider Obstetrics & Gynecology
DX: O36.5930 Maternal care for other known or suspected poor fetal growth, third trimester, not applicable or unspecified (principal); Z3A.34 34 weeks gestation of pregnancy; Z20.822 Contact with and (suspected) exposure to COVID-19
CPT/HCPCS: 59025; 87635; C9803; G0378; G0379

== ENCOUNTER → 2021-12-03 09:52 | Outpatient (CLI) | payer OTHER, SELFPAY ==
[2021-12-04 08:18] LABS: Strep Grp B PCR NEG for Grp B Strep
== END ==
PROVIDERS: Visit Provider Obstetrics & Gynecology
DX: Z34.83 Encounter for supervision of other normal pregnancy, third trimester (principal); Z3A.36 36 weeks gestation of pregnancy
CPT/HCPCS: 87653

== ENCOUNTER 2021-12-10 11:50 | Outpatient (CLI) | payer OTHER, SELFPAY | END 2021-12-10 12:25 | disposition home or self-care (01) | LOC: LABOR 13:48 → OB 12-11 07:52 | PROVIDERS: Referring Provider Obstetrics & Gynecology; Visit Provider Obstetrics & Gynecology | DX: O36.5930 Maternal care for other known or suspected poor fetal growth, third trimester, not applicable or unspecified (principal); Z3A.37 37 weeks gestation of pregnancy | CPT/HCPCS: 59025; G0378; G0379 ==

== ENCOUNTER 2021-12-17 11:13 | Outpatient (CLI) | payer OTHER, SELFPAY | END 2021-12-17 12:00 | disposition home or self-care (01) | LOC: OB 12-22 14:06 | PROVIDERS: Referring Provider Obstetrics & Gynecology; Visit Provider Obstetrics & Gynecology | DX: O36.5930 Maternal care for other known or suspected poor fetal growth, third trimester, not applicable or unspecified (principal); Z3A.38 38 weeks gestation of pregnancy | CPT/HCPCS: 59025; G0378; G0379 ==

== ENCOUNTER 2021-12-23 20:27 | Inpatient (IN) | payer OTHER, SELFPAY ==
[2021-12-23 20:38] VITALS: BP 128/59
--- NOTE | 2021-12-23 21:39 | PM.OBHP.1 ---
OB HPI Date/Time Date of admission: 12/23/21 Date Patient Seen: 12/24/21 Time Patient Seen: 07:00 History of Present Condition Chief complaint: Labor & Delivery : 2 Para: 1 Estimated Date of Delivery: 12/29/21 Estimated Gestational Age (weeks): 39+1 Narrative: Jenn Jimenez is a 26 year old admitted for cervical ripening/induction now at 39+1 weeks EGA due to SGA and borderline elevated doppler flow studies which has been followed jointly here with [facility] who have recommended delivery by induction if not delivered by 39+0 weeks EGA. Weekly anteparum testing has been negative. She was found to be anemic in the third trimester and has been taking Fe w/ Vitamin C but PNC has otherwise been uncomplicated, dates are well established by first trimester US dating, and GBS is negative Indications Indication for induction OB: other (Small for gestational age (SGA) with borderline doppler studies) History of Present care: good care Dating criteria: LMP confirmed by 1st trimester US Ultrasounds: normal 1st trimester US, normal mid trimester US and abnormal US findings (Small for gaestational age) Abnormal ultrasound findings: SGA, borderline elevated doppler flow studies Preadmission Labs Blood type: B (+) positive -: Antibody screen: negative, GBS status: negative, HBsAG: negative, HIV: negative and RPR/VDLR: negative -: Chlamydia screen: not detected and Gonorrhea screen: not detected -: Rubella: immune and Varicella: immune HCT: 28.1 HCAB: negative PAP: Normal Quad screen: Normal 1 hr GTT: 120 Prior (ies) History: x 1 Evaluation Evaluation Baseline heart rate: 115 Variability: Moderate (11-25) monitor accelerations: Present Monitor Decelerations: Absent Contraction Frequency (minutes): 6 Uterine Contraction Intensity: Mild Category of Tracing: Reactive Status: Category l Dilation (cm): 5 Effacement (%): 100 Dilation: Closed Effacement: 60-70% station: 0 Position of cervix: anterior Consistency: soft Moore score: 8 Comments: Exam performed 12/17/2021 [facility] Medical History Depression Hyperemesis gravidarum Surgical History History of wisdom tooth extraction Family History Sister Hx of congenital cardiac septal defect Brother Hx of congenital cardiac septal defect Social History marital status: number of children: 1 household members: spouse and children lives independently: Yes housing: house pets and animals: Yes (Dog) education level: college occupational status: unemployed seatbelt use: always water heater temp set < 120 deg: Yes (will check) working smoke detector in home: Yes fire extinguisher in home: Yes carbon monox detector in home: Yes firearms in home: Yes firearms unloaded and locked: Yes do you feel safe at home: Yes Smoking Status: Never smoker second hand exposure: No alcohol intake: former substance use type: does not use during the past year weight has: remained stable well-balanced diet: daily or most days daily servings fruits/ve-4 caffeine: Yes (200mg) Type(s) of exercise: none Meds Home Medications and Allergies Home Medications Medication Instructions Recorded Confirmed Type prenat.vits,talita,cxc-xyev-nkxox 1 tab PO DAILY 06/04/21 12/23/21 History Allergies Allergy/AdvReac Type Severity Reaction Status Date / Time No Known Drug Allergies Allergy Verified 12/17/21 10:47 Review of Systems Review of Systems Narrative: Problem-specific ROS positives included in HPI OB Exam HENIN Head: normal to inspection, normocephalic and atraumatic Eyes General: appearance normal, both eyes and all related structures Resp Effort & Inspection: normal respiratory effort and able to speak in complete sentences Auscultation: clear to auscultation bilaterally Cardio Rate: regular rate Rhythm: regular rhythm Heart Sounds: S1 normal, S2 normal and no murmurs Extremities Lower extremity: Yes normal to inspection GI Inspection: normal to inspection Palpation: Yes soft and Yes no hepatosplenomegaly Uterus Location (Fundal Height): 36 Presentation: vertex Estimated Weight (lbs): 7 Objective Labs Result Diagrams: 12/23/21 21:30 Assessment and Plan Assessment and Plan Assessment and Plan narrative: ASSESSMENT 1. Intrauterine gestation, victor, 39+1 weeks EGA 2. Small for gestational age 3. Anemia 4. GBS negative status PLAN 1. Admit for ripening; induction when favorable. Patient counselled re: indications and rationale for ripening/induction/delivery at 39+ weeks EGA as recommended by [facility] along with attendant risks, benefits, and potential complications. Patient expresses understanding and concurs with [facility] recommendation. She's admitted at this time for overnight ripening with PO cytotec and reassessment of her cervix in the AM with plans for initiating pitocin induction if cervix is sufficietly favorable. 2. Se admission orders.
[2021-12-23 21:43] LABS: Add Manual Diff / Slide Review NO; Basophils Absolute Auto 0 /uL (0-100); Basophils Percent Auto 0.4 % (0-2); Eosinophils Absolute Auto 100 /uL (0-450); Eosinophils Percent Auto 0.5 % (2-4); Hematocrit 28.1 % (36-46); Hemoglobin 9.4 g/dL (12.0-16.0); Lymphocytes Absolute Auto 3000 /uL (1100-4500); Mean Corpuscular HGB Conc 33.6 % (30-36); Mean Corpuscular Hemoglobin 26.7 PG (26-34); Mean Corpuscular Volume 79.5 fL (80-100); Monocytes Absolute Auto 700 /uL (0-900); Monocytes Percent Auto 6.5 % (3-14); Neutrophils Absolute Auto 6900 /uL (1500-7000); Neutrophils Percent Auto 64.6 % (50-75); Platelet Count 261 X10^3/uL (150-400); Red Blood Cell Count 3.53 X10^6/uL (4.0-5.2); Red Cell Distribution Width 14.9 % (11.6-14.8); White Blood Cell Count 10.6 X10^3/uL (4.5-11.0)
[2021-12-23 21:53] LABS: COVID19 -Nasal RAPID Negative (Negative)
[2021-12-23] MEDS: miSOPROStoL 25 MCG TABLET 50 MCG PO (21:53)
[2021-12-24] MEDS: fentaNYL 100 MCG/2 ML INJ 50 MCG IV ×4 (00:16→05:08)
[2021-12-24] MEDS: ZOLPIDEM 5 MG TABLET PO (02:15)
[2021-12-24] MEDS: miSOPROStoL 25 MCG TABLET 50 MCG PO (04:06)
[2021-12-24] MEDS: LACTATED RINGERS 1,000 ML 100 ML IV (07:00)
[2021-12-24] MEDS: FENT 2MCG/ML BUPIV 0.125% EPI 200 MCG/100 ML PLAST..BAG 11 MCG EPIDURAL (08:00)
--- NOTE | 2021-12-24 09:46 | PM.OBPNLAB ---
Date/Time Date Patient Seen: 12/24/21 Time Patient Seen: 09:08 Pain Control Pain control: epidural Pelvic Exam Dilation (cm): 7 Effacement (%): 100 station: 0 Amniotic membrane status: Ruptured (Clear) Contractions Contraction frequency (min): 4 Status status: Category ll Heart Rate Baseline: 140 Monitor Accelerations: Present Monitor Decelerations: Prolonged (7 min) Assessment and Plan Comments: 26-year-old 39 weeks and 2 days gestation in active labor. I was called to the center for a prolonged deceleration following spontaneous rupture of membranes at 8:56 a.m.. Fluid was clear. heart tones were down for approximately 7 minutes and improved after oxygen, fluid bolus and placing patient on hands and knees. SVE 7/100/0. Variability is now moderate and accelerations present without further decelerations. Continue expectant management.
--- NOTE | 2021-12-24 11:41 | P.PCNOB_ITS ---
Events: Other (SGA with borderline Doppler flow studies) Labor & Delivery Delivery date: 12/24/21 Intrapartal Events: None Cervical ripening method: per misoprostal protocol Induction method: none Delivery monitor: external FHT and external uterine Route of delivery: Episiotomy description: None L&D Laceration Description: None Estimated blood loss (mL): 150 Anesthesia Type: Epidural Complications: None Narrative: The patient progressed nicely through the 1st stage of labor after spontaneous rupture of membranes demonstrated clear fluid. An epidural was placed for patient comfort and once in the 2nd stage, she pushed vigorously a few times and delivered spontaneously over an intact perineum a viable female infant with Apgars of 8 and 9, weight 3059 g (6 lb 11.9 oz) in the vertex presentation, JOHNNIE position. No cord entanglement was noted and no shoulder dystocia was experienced. Following delivery, skin to skin contact was initiated immediately and delayed cord clamping for greater than 60 seconds performed. Once the umbilical cord was doubly clamped and cut, cord blood sample was obtained for routine studies. The placenta was delivered spontaneously with gentle cord traction and found to be intact with a marginal cord insertion approximately 2 cm from the edge of the placenta. Three vessels of the umbilical cord were noted. IV Pitocin was administered and patient's bleeding promptly became minimal. Inspection of the vaginal introitus showed no abrasions or lacerations. Sponge and needle counts were correct both before and after the delivery. Both mother and baby are doing well at the end of the delivery process. [facility] 1: gender: Female Presentation: vertex Position: Left Occiput Anterior Placenta delivery description: Spontaneous, Expressed and Abnormal Configuration (Marginal cord insertion) Cord Vessel Description: 3 Vessels score (1 min): 8 score (5 min): 9 weight: 6 lb 11.903 oz Plan for aftercare: Routine care
[2021-12-24] MEDS: IBUPROFEN 600 MG TABLET PO ×2 (14:49→23:59)
[2021-12-24] MEDS: LANOLIN OINT 7 GM 1 APPLIC TOP (14:49)
[2021-12-24] MEDS: ACETAMINOPHEN 325 MG TABLET 650 MG PO ×2 (18:18→23:59)
[2021-12-24] MEDS: OXYCODONE IR 5 MG TABLET PO (18:19)
[2021-12-25] MEDS: ACETAMINOPHEN 325 MG TABLET 650 MG PO ×3 (04:58→17:38)
[2021-12-25] MEDS: IBUPROFEN 600 MG TABLET PO ×3 (04:58→17:37)
[2021-12-25 07:03] LABS: Hematocrit 26.7 % (36-46); Hemoglobin 8.8 g/dL (12.0-16.0)
[2021-12-25 09:10] VITALS: TEMP 36.4
[2021-12-25] MEDS: OXYCODONE IR 5 MG TABLET PO ×2 (09:10)
[2021-12-25] MEDS: DOCUSATE 100 MG CAPSULE PO (09:12)
[2021-12-25 11:26] VITALS: TEMP 36.4
--- NOTE | 2021-12-25 13:27 | PM.OBDS.1 ---
Discharge Providers Provider Date of admission: 12/23/21 20:27 Discharge Date: 12/25/21 Primary care physician: Renee CORBIN Provider Consults: 12/23/21 20:31 Consult to Anesthesiology Urgent Comment: Consulting Provider: Candido Azevedo Reason for consultation: TULIO placement in labor Has provider been notified: No 12/25/21 11:38 Consult to Assistant Cross Country Coach Routine Comment: Discharge provider: Candido Azevedo MD Summary Hospital Course Date Patient Seen: 12/25/21 Time Patient Seen: 13:27 Diagnoses: Intrauterine , term, delivered Small for gestational age Hospital Course: Jenn was admitted for cervical ripening on the evening of 12/23/2021 and after 2 doses of oral cytotec had progressed into active labor at which point she had an epidural placed and experienced AROM. She progressed well without augmentation and delivered spontaneously late on the morning of 12/24/2021 a viable female infant with Apgars of 8/9 and a BW of 3059 gms.. Following delivery the patient has done extremely well with prompt return of bowel and bladder function, she's ambulating independently, tolerating a regular diet, and her pain, primarily LBP at the site of her TULIO, is well controlled with PO pain meds. She will be discharged to home in an afe\brile, normotensive condition after counselling regarding limitation of activities, precautionary symptoms, medications, and plans for follow-up. Medications at discharge will include continued use of PNV's, Ibuprofen 600 mg q 6 hrs PRN, Colace 100 mg PO BID, and Oxycodone 5 mg PO q 4-6 hrs PRN. She will return for her post- visit in 6 wks and plans to have Nexplanon inserted for contraception following that visit. Peripartum Data Delivery Method: Natural Vaginal Laceration Description: None Episiotomy description: None complications: none 1: Gender: Female Disposition of : home Status at Discharge Cognitive/behavioral status at discharge: oriented Functional status at discharge: independent ambulation Overall status at discharge: patient is progressing back to baseline Time Spent with Patient Time attestation: Total time spent providing and/or coordinating discharge services: Objective Labs Result Diagrams: 12/25/21 06:36 Labs: Laboratory Results - last 24 hr 12/25/21 06:36 Hgb 8.8 L Hct 26.7 L Exam Vital Signs (past 8 hours): - 12/25/21 09:10 12/25/21 11:26 Temperature 97.5 F L 97.6 F Const General: cooperative and comfortable Nutritional Appearance: average body habitus Orientation: alert and oriented x3 HENMT Head: normal to inspection, atraumatic and abrasion Ears: hearing grossly normal bilaterally Face and sinus: face symmetric Eyes General: appearance normal, both eyes and all related structures Conjunctivae: conjunctivae normal Sclera: sclerae normal EOM: EOM intact bilaterally Neck Neck: normal visual inspection Resp Effort & Inspection: normal respiratory effort and able to speak in complete sentences GI Inspection: normal to inspection Palpation: soft, no hepatosplenomegaly and mass (Firm, minimally tender fundus, U-5 ) External Female Exam: other (No significant bleeding noted) Extrem General: no calf tenderness Psych Appearance: grossly normal Mental Status: mental status grossly normal Speech and Movement: speech and movement normal Mood: congruent mood Affect: normal affect Attitude: cooperative Thought Process: normal Thought Content: normal Judgment: judgment good Discharge Plan Discharge Plan Patient Disposition: Home Provider Discharge Comment: Please review the written instructions you received when you were discharged from the hospital. Your follow-up appointment will be scheduled for 6 weeks after delivery and I look forward to seeing you then. If however in the meantime you have any issues, concerns, or problems, please contact me either through the office phone at [phone] or via the patient portal. Discharge orders & Medications Prescriptions: New docusate sodium 100 mg Capsule 100 mg PO BID 15 Days Qty: 30 0RF ibuprofen 600 mg Tablet 600 mg PO Q6HR PRN (Reason: Pain, Mild (1-3)) Qty: 60 2RF oxycodone 5 mg Tablet 5 mg PO Q4HR PRN (Reason: Pain, Moderate (4-6)) Qty: 12 0RF oxycodone 5 mg tablet 5 mg PO Q6H PRN (Reason: pain) Qty: 10 0RF ibuprofen 600 mg tablet 600 mg PO Q6H PRN (Reason: fever or pain) Qty: 60 0RF Continued prenat.vits,talita,idj-szxn-naytp Tablet 1 tab PO DAILY Follow up/Referrals: Provider,Renee CORBIN [Primary Care Provider] - Candido Azevedo MD [Physician] - (Follow up appt with Dr. Azevedo on 02/09/2022 @1030am. If you have any questions/concerns or need to reschedule please call .) Discharge Health Status Multidrug resistant organism: No MDRO Diet/Activity/Treatments Diet: Diet as Tolerated Activity: As tolerated Other treatments: Cusa-nfy-efrfyoc Tylenol may also be taken for pain relief Skin/Wound/Dressing Care Report to your healthcare provider any signs of infection, such as:: chills, fever, increased pain, unusual drainage and unusual redness Dressing: N/A Visit Report/Discharge Packet Instructions: DI for Labor and Delivery, Vaginal , DI for and Nipple Soreness, DI for Prescription Opioid Use Stand Alone Forms: Discharge: Care Discharge Data Primary Care Provider: Renee Luna
[2021-12-25 16:42] VITALS: BP 122/67; PULSE 55; RESP 16; TEMP 36.4
[2021-12-25 17:37] VITALS: TEMP 36.4
[2021-12-25 17:38] VITALS: TEMP 36.4
== END 2021-12-25 18:05 | disposition home or self-care (01) | DRG 807 ==
PROVIDERS: Admitting Provider Obstetrics & Gynecology; Referring Provider Obstetrics & Gynecology; Visit Provider Obstetrics & Gynecology
DX: O99.892 Other specified diseases and conditions complicating childbirth (principal); Z37.0 Single live birth; Z3A.39 39 weeks gestation of pregnancy; O99.02 Anemia complicating childbirth; O76 Abnormality in fetal heart rate and rhythm complicating labor and delivery; Z20.822 Contact with and (suspected) exposure to COVID-19
CPT/HCPCS: 01967; 36415; 59050; 59400; 85014; 85018; 85025; 86850; 86900; 86901; 87635; C9803; G0379; J3010